=== PATIENT | male | born 1945 | race Caucasian/White ===

== ENCOUNTER 2016-03-03 10:08 | Inpatient (IN) | payer OTHER ==
--- NOTE | 2016-02-06 09:58 | PAT Medication Instructions ---
Service Date Feb 06, 2016. Current Home Medication List Brimonidine Tartrate (Alphagan P Oph), 1 DROPS OP BID Dorzolamide Hcl (Trusopt Oph), 1 DROPS OP BID Finasteride (Proscar), 5 MG PO QPM Ibuprofen Tab (Advil), 400 MG PO BID Latanoprost (Xalatan 0.005% Oph Missy), 1 DROPS OP HS Simvastatin (Zocor), 40 MG PO QPM Tamsulosin Hcl (Flomax), 0.4 MG PO QPM Medication Instructions For Your Scheduled Surgery - Check with surgeon for instructions: Ibuprofen Tab (Advil), 400 MG PO BID - Take the following medications the morning of surgery with a sip of water: Dorzolamide Hcl (Trusopt Oph), 1 DROPS OP BID Brimonidine Tartrate (Alphagan P Oph), 1 DROPS OP BID - Take the following medications as scheduled the night before surgery: Tamsulosin Hcl (Flomax), 0.4 MG PO QPM Latanoprost (Xalatan 0.005% Oph Missy), 1 DROPS OP HS Simvastatin (Zocor), 40 MG PO QPM Finasteride (Proscar), 5 MG PO QPM Dorzolamide Hcl (Trusopt Oph), 1 DROPS OP BID Brimonidine Tartrate (Alphagan P Oph), 1 DROPS OP BID If you have any questions please call us at [phone] (Ashley Coker PA-C) or [phone] or [phone]
--- NOTE | 2016-02-06 10:48 | DIAGNOSTIC IMAGING REPORT ---
CHEST PREADMISSION(PA/LAT) CLINICAL HISTORY: Preoperative chest COMPARISON STUDY: No previous studies for comparison. FINDINGS: The heart is borderline enlarged. There is mild interstitial thickening with a basilar predominance. There is no lobar consolidation. There are no pleural effusions. There are old left-sided rib deformities.[ IMPRESSION: Mild interstitial thickening. No evidence of lobar consolidation. Electronically signed by: Dorian Rodriguez M.D. 02/06/2016 10:47 AM
[2016-02-06 10:49] LABS: BASO % 0.5 %; BASO ABS # 0.04 K/uL (0-0.2); COMPLETE YES; EOS % 4.5 %; HEMATOCRIT 42.8 % (42-52); IG% 0.4 %; MEAN CELL VOLUME 93.7 fL (80-100); MEAN CORPUSCULAR HEMOGLOBIN 32.2 pg (25-34); MEAN CORPUSCULAR HGB CONC 34.3 g/dl (32-36); MEAN PLATELET VOLUME 10.3 fL (7.4-10.4); MONO % 9.3 %; NEUT % 59.3 %; PLATELET COUNT 199 K/uL (130-400); RED BLOOD COUNT 4.57 M/uL (4.7-6.1); WHITE BLOOD COUNT 7.32 K/uL (4.8-10.8)
[2016-02-06 11:07] LABS: PARTIAL THROMBOPLASTIN RATIO 1.1; PROTHROMBIN TIME (PATIENT) 10.7 SECONDS (9.0-12.0)
[2016-02-06 11:15] LABS: BUN/CREATININE RATIO 22.3 (10-20); CALCIUM 8.8 mg/dl (8.5-10.1); CREATININE 1.1 mg/dl (0.60-1.40); POTASSIUM 4.2 mmol/L (3.5-5.1)
[2016-02-06 12:16] LABS: ESTIMATED AVERAGE GLUCOSE 120 mg/dl; HA1C FLAG Normal (Normal)
--- NOTE | 2016-02-24 16:58 | HISTORY & PHYSICAL EXAMINATION ---
DATE OF ADMISSION: 03/03/2016 PROCEDURE: Left knee replacement. HISTORY OF PRESENT ILLNESS: The patient is a pleasant 70-year-old male who presents for preoperative evaluation prior to left knee replacement. He states he has been having pain in this knee for several years now, which has gradually worsened, it has now gotten to the point that it is affecting his daily activities including walking, standing, going up and down steps. He has tried oral anti-inflammatories in the past as well as previous viscosupplementation and cortisone injection with little to no relief. After discussing further care, would like to proceed with a left knee replacement. PAST MEDICAL HISTORY: 1. High cholesterol. 2. BPH. ALLERGIES: No known drug allergies. CURRENT MEDICATIONS: 1. Latanaprost 0.005% one drop each eye daily. 2. Simvastatin 40 mg daily. 3. Finasteride 5 mg daily. 4. Tamsulosin 0.4 mg once a day. PAST SURGICAL HISTORY: None listed. FAMILY HISTORY: Noncontributory. SOCIAL HISTORY: The patient denies a history of alcohol use, admits to smoking. REVIEW OF SYSTEMS: Otherwise negative. Please see HPI for pertinent positives. PHYSICAL EXAMINATION: GENERAL: Pleasant male in no acute distress, alert and oriented x3. VITAL SIGNS: He is 5 feet 7 inches, weighs 190 pounds. HEENT: Normocephalic, atraumatic. CARDIAC: Regular rate and rhythm. No murmurs or gallops appreciated. Resting pulse 80 beats per minute. LUNGS: Clear to auscultation without rales or wheeze bilaterally. ABDOMEN: Soft, nontender. Bowel sounds present. EXTREMITIES: Left lower extremity is neurovascularly intact. Calves are soft and nontender. DP pulse +2 doses good quad tone. Straight leg raise without lag. No erythema or warmth. Has mild effusion. Overall has varus alignment. Has positive crepitation with motion, range of motion is 0/5/115. IMAGING: Reviewed of the left knee shows findings consistent with end-stage DJD including joint space narrowing, subchondral sclerosis, osteophyte formation noted, has varus alignment. IMPRESSION: 1. Left knee degenerative joint disease. 2. High cholesterol. 3. Benign prostatic hypertrophy. PLAN: Further care discussed with patient. At this point in time, he has failed conservative measures and would like to proceed with the left knee replacement. We will place on aspirin 81 mg p.o. b.i.d. for a month postop. Otherwise, have no other questions or concerns.
[2016-03-03] VITALS (7 sets, daily range): BP systolic 100–124; BP diastolic 60–84; PULSE 56–82; TEMP 36.5–36.9; O2SAT 93–99; Ht 167.6 cm; Wt 88.4 kg
[~2016-03-03] VITALS: Ht 167.6 cm; Wt 88.4 kg
--- NOTE | 2016-03-03 09:26 | History & Physical Bridge Note ---
H&P Re-Evaluation Bridge Note: I have examined the patient, reviewed the History & Physical and in the interval since the performance of the History & Physical I have noted the following changes of clinical significance: No changes noted
[~2016-03-03 10:08] MED LIST: ACETAMINOPHEN 500 MG TAB PO SCH; ATROPINE SULFATE 0.1 MG/ML 5ML SYR IV PRN; BRIM0.1S OP; BUPIVACAINE 0.5 % 5 MG/1 ML PF 10ML VIAL ONE; CEFAZOLIN 2000 MG/60 ML D5W 60 ML IV SCH; CeleBREX 200 MG CAP PO SCH; DEXAMETHASONE 4 MG TAB PO SCH; DORZ2SOL17 OP; EpHEDrine SULFATE INJ 50 MG/ML AMP IV PRN; FAMOTIDINE 20 MG TAB PO SCH; FENTANYL CITRATE INJ 50 MCG/1 ML 2 ML VIAL IV PRN; FINA5TAB PO; GABAPENTIN 300 MG CAP PO SCH; IBUP-103 PO; LACTATED RINGER'S 1000ML IV SCH; LACTATED RINGER'S 500 ML IV SCH; LATA0.5S OP; METOCLOPRAMIDE HCL 10 MG TAB PO SCH; NURSING VERBAL MED ORDER ONE; ONDANSETRON INJ 2 MG/ML 2 ML VIAL IV PRN; ROPIVACAINE 5MG/ML 30 ML 150 MG, BUPIVACAINE/EPINEPHR 0.5% MPF 30 ML, KETOROLAC TROMETH... INFIL SCH; SIMV40TA2 PO; TAMS0.4C38 PO
[2016-03-03] MEDS ORDERED: FENTANYL CITRATE INJ 50 MCG/1 ML 2 ML VIAL ONE (11:11)
[2016-03-03] MEDS ORDERED: PROPOFOL IV EMULSION 10 MG/ML 20 ML VIAL IV ONE (11:11)
[2016-03-03] MEDS ORDERED: ROCURONIUM BROMIDE 10 MG/ML 5 ML VIAL ONE (11:11)
[2016-03-03] MEDS ORDERED: LIDOCAINE HCL 2% 2 ML VIAL (20MG/ML) ONE (11:11)
[2016-03-03] MEDS ORDERED: MIDAZOLAM HCL 1 MG/ML 2ML VIAL ONE (11:11)
[2016-03-03] MEDS ORDERED: ORTHO JOINT ANESTHETIC ONE (12:16)
[2016-03-03] MEDS: TRANEXAMIC ACID INJ 1,000 MG in SODIUM CHLORIDE 0.9% 100ML 100 ML IV SCH ×2 (12:25→16:36)
[2016-03-03] MEDS ORDERED: ONDANSETRON INJ 2 MG/ML 2 ML VIAL ONE (13:07)
[2016-03-03] MEDS ORDERED: EpHEDrine SULFATE 50MG/5ML SYR ONE (13:14)
[2016-03-03] MEDS ORDERED: POVIDONE-IODINE OP SOLN 30 ML BTL TOP ONE (13:28)
[2016-03-03] MEDS ORDERED: BACITRACIN 50000 UNIT VIAL IR ONE (13:28)
--- NOTE | 2016-03-03 13:49 | [facility] Post Operative Brief Note ---
Immediate Operative Summary Operative Date Mar 03, 2016. Pre-Operative Diagnosis Left knee degenerative joint disease Post-Operative Diagnosis Left knee degenerative joint disease Procedure(s) Performed Left Total Knee Arthroplasty Surgeon Dr. Ronald Griggs Lead Electrician Surgeon(s) Ollie Masterson Estimated Blood Loss 5mL Findings severe djd lt knee with varus deformity Specimens A: Left Knee Bone and Tissue Complication(s) None Disposition Recovery Room / PACU
--- NOTE | 2016-03-03 14:28 | OPERATIVE REPORT ---
DATE OF OPERATION: 03/03/2016 PREOPERATIVE DIAGNOSIS: Severe end-stage tricompartmental degenerative joint disease with varus alignment, left knee. POSTOPERATIVE DIAGNOSIS: Same. PROCEDURE: Left total knee arthroplasty utilizing Calvert \T\ Nephew Journey II patient matched knee, size 7 femur, 6 tibia, 13 poly, 35 oval patella. SURGEON: Dr. Griggs. SPORTS CARTOONIST: MIQUEL Dumas. ANESTHESIA: Femoral nerve block, spinal. COMPLICATIONS: None. ESTIMATED BLOOD LOSS: 5 mL. TOURNIQUET TIME: 45 minutes. HISTORY OF PRESENT ILLNESS: The patient presents as a very pleasant 70-year-old white male who presents with complaints of severe end-stage DJD about his left knee. He has been nonresponsive to conservative therapy including physical therapy, anti-inflammatories, relative rest, activity modification, relative rest and presents for total knee arthroplasty. INDICATIONS: The patient, age 70, presents being seen and evaluated after failing attempts at conservative management including physical therapy, viscosupplementation, corticosteroid injections, relative rest and presents after failing conservative management for total knee arthroplasty. OPERATION AND FINDINGS: The patient was properly prepped and draped in supine position for total knee arthroplasty after identifying the appropriate surgical site. An anterior midline incision was made through the subcutaneous tissues down to the region of the extensor mechanism. A medial parapatellar incision was subsequently made. Meticulous hemostasis was obtained and performed at all times. The patella having been subluxed lateralward, medial and lateral meniscal remnants were excised. The patellar cut was then initially made and was sized to the appropriate size. After subluxing the tibia forward the appropriate meniscal fragments having been removed the distal femur was then cut first utilizing a Calvert and Nephew block. The distal femoral cuts and chamfer cuts were all made under direct visualization and the proximal tibial osteotomy cut was also made utilizing Calvert and Nephew blocks and checked with an extramedullary guide. The appropriate trial components on the femur and tibia were placed. Appropriate trial spacers were used to check flexion and extension gaps. With flexion and extension gaps being equal, the components were then subsequently after thorough irrigation and debridement lavage components were then subsequently cemented in the following order: femur, tibia and patella. Exparel was used for intraoperative anesthesia, the medial parapatellar incision was closed utilizing #1 Vicryl, subQ was closed with 2-0 Vicryl, skin was closed with skin clips. A sterile compression dressing was placed. The patient was taken to recovery room in stable condition. Due to the complex nature of the procedure, the entire surgery was performed with the operational assistance of Ollie Masterson PA-C. The planning assistant, under direct supervision, was involved in the actual performance of all aspects of the surgical procedure including hemostasis, tissue retraction and incision, instrument management, patient positioning, and wound closure. I attest to the content of the Intraoperative Record and any orders documented therein. Any exceptio ns are noted below.
[2016-03-03] MEDS ORDERED: BISACODYL 10 MG SUPP PR PRN (14:30)
[2016-03-03] MEDS ORDERED: ZOLPIDEM TARTRATE 5 MG TAB PO PRN (14:30)
[2016-03-03] MEDS ORDERED: ALUMINUM/MAGNESIUM/SIMETH (MAALOX MAX) 30 ML UDC PO PRN (14:30)
[2016-03-03] MEDS ORDERED: DiphenhydrAMINE HCL 50 MG/ML VIAL IV PRN (14:30)
[2016-03-03] MEDS ORDERED: MAGNESIUM HYDROXIDE SUSP 30 ML UDC PO PRN (14:30)
[2016-03-03] MEDS ORDERED: ONDANSETRON INJ 2 MG/ML 2 ML VIAL IV PRN (14:30)
[2016-03-03] MEDS ORDERED: MoRPHine SULFATE 2 MG/ML CARP IV PRN (14:30)
--- NOTE | 2016-03-03 14:57 | DIAGNOSTIC IMAGING REPORT ---
LEFT KNEE 2 VIEWS History: Left total knee arthroplasty. Degenerative arthritis. Postop. FINDINGS: The patient is status post a left total knee arthroplasty. The hardware is intact. No fracture or dislocation. Skin quoc and surgical drains are in place. IMPRESSION: Left total knee arthroplasty. No evidence for hardware complication. Electronically signed by: Pravin Hines M.D. 03/03/2016 2:55 PM Dictated Date/Time: 03/03/2016 2:55 PM
--- NOTE | 2016-03-03 15:19 | Anesthesiology Progress Note ---
Anesthesia Post Op Note Date & Time Mar 03, 2016 at 15:19 Vital Signs Pain Intensity: 0 Vital Signs Past 12 Hours Date Time Temp Pulse Resp B/P Pulse Ox O2 Delivery O2 Flow Rate FiO2 03/03/16 15:15 65 20 102/66 98 Nasal Cannula 2 03/03/16 15:05 36.4 63 13 116/57 98 Nasal Cannula 2 03/03/16 14:55 56 18 116/62 98 Nasal Cannula 2 03/03/16 14:45 56 15 118/63 98 Nasal Cannula 2 03/03/16 14:35 56 12 119/72 98 Mask 10 03/03/16 14:27 36.5 65 16 130/67 99 Mask 10 03/03/16 10:31 36.9 67 20 122/84 94 Room Air Notes Mental Status: alert / awake / arousable, participated in evaluation Pt Amnestic to Procedure: Yes Nausea / Vomiting: adequately controlled Pain: adequately controlled Airway Patency, RR, SpO2: stable & adequate BP & HR: stable & adequate Hydration State: stable & adequate Anesthetic Complications: no major complications apparent
[2016-03-03] MEDS: FERROUS GLUCONATE 324 MG TAB PO SCH (16:53)
[2016-03-03] MEDS: D5W AND 1/2NSS + 20MEQ KCL 1,000 ML IV SCH (16:53)
[2016-03-03] MEDS: CEFAZOLIN IV 2,000 MG in DEXTROSE 5% 50ML 50 ML IV SCH (19:42)
[2016-03-03] MEDS: ACETAMINOPHEN 500 MG TAB PO SCH (19:43)
[2016-03-03] MEDS: SIMVASTATIN 40 MG TAB PO SCH (20:53)
[2016-03-03] MEDS: DORZOLAMIDE HCL 2% OPH SOLN 10 ML BTL OP SCH (20:53)
[2016-03-03] MEDS: OXYCODONE HCL 10 MG TABCR (OXYCONTIN) PO SCH (20:54)
[2016-03-03] MEDS: TAMSULOSIN HCL 0.4 MG CAP PO SCH (20:54)
[2016-03-03] MEDS: LATANOPROST 0.005% OP SOLN 2.5 ML BTL OP SCH (20:54)
[2016-03-03] MEDS: FINASTERIDE 5 MG TAB PO SCH (20:54)
[2016-03-03] MEDS: SENNA 8.6 MG TAB PO SCH (20:54)
[2016-03-03] MEDS: ASPIRIN 81 MG ECTAB PO SCH (20:54)
[2016-03-03] MEDS: DOCUSATE SODIUM 100 MG CAP PO SCH (20:54)
[2016-03-04] MEDS: D5W AND 1/2NSS + 20MEQ KCL 1,000 ML IV SCH ×2 (01:33→12:15)
[2016-03-04] MEDS: CEFAZOLIN IV 2,000 MG in DEXTROSE 5% 50ML 50 ML IV SCH (03:28)
[2016-03-04] MEDS: ACETAMINOPHEN 500 MG TAB PO SCH ×3 (03:28→21:11)
[2016-03-04 04:00] VITALS: BP 115/71; PULSE 55; TEMP 36.7; O2SAT 95
[2016-03-04 05:57] LABS: HEMATOCRIT 40.3 % (42-52); MEAN CELL VOLUME 92.4 fL (80-100); MEAN CORPUSCULAR HEMOGLOBIN 30.7 pg (25-34); MEAN CORPUSCULAR HGB CONC 33.3 g/dl (32-36); MEAN PLATELET VOLUME 10.4 fL (7.4-10.4); PLATELET COUNT 195 K/uL (130-400); RED BLOOD COUNT 4.36 M/uL (4.7-6.1); WHITE BLOOD COUNT 15.91 K/uL (4.8-10.8)
[2016-03-04 06:22] LABS: BUN/CREATININE RATIO 20.8 (10-20); CALCIUM 8.7 mg/dl (8.5-10.1); CREATININE 1.3 mg/dl (0.60-1.40); POTASSIUM 4.3 mmol/L (3.5-5.1)
--- NOTE | 2016-03-04 07:55 | Orthopedic Progress Note ---
Orthopedic Progress Note Date of Service Mar 04, 2016. Subjective Post OP Day: 1 Reports: feeling well, pain controlled w PO medications, Denies: complaints Objective calves soft nontender, N/V intact, dressing C/D/I, A&O x3, toes mobile, hemovac drainage (150ml latest shift) Date Time Temp Pulse Resp B/P Pulse Ox O2 Delivery O2 Flow Rate FiO2 03/04/16 04:00 36.7 55 18 115/71 95 Room Air 03/03/16 23:35 36.5 59 18 100/60 94 Room Air 03/03/16 20:44 36.8 57 16 113/67 95 Room Air 03/03/16 19:30 Room Air 03/03/16 18:30 36.5 82 16 116/78 93 Nasal Cannula 2.0 03/03/16 17:30 36.6 66 16 111/73 95 Nasal Cannula 2.0 03/03/16 16:30 36.7 56 17 124/73 96 Nasal Cannula 2.0 03/03/16 15:30 69 14 98/56 96 Nasal Cannula 2 03/03/16 15:30 36.8 58 16 105/65 99 Nasal Cannula 2.0 03/03/16 15:30 98 Nasal Cannula 2.0 03/03/16 15:30 99 Nasal Cannula 2.0 03/03/16 15:15 65 20 102/66 98 Nasal Cannula 2 03/03/16 15:05 36.4 63 13 116/57 98 Nasal Cannula 2 03/03/16 14:55 56 18 116/62 98 Nasal Cannula 2 03/03/16 14:45 56 15 118/63 98 Nasal Cannula 2 03/03/16 14:35 56 12 119/72 98 Mask 10 03/03/16 14:27 36.5 65 16 130/67 99 Mask 10 03/03/16 10:31 36.9 67 20 122/84 94 Room Air Laboratory Results 24 Hours: Test 03/04/16 05:35 Hematocrit 40.3 % Hemoglobin 13.4 g/dL Assessment & Plan Assessment: POD 1 s/p Left TKA Plan: PT/OT Planning for OPPT Recheck HV ouptput after PT Inhouse Planning Pain Management: Oxycontin, Morphine, PO Tylenol, Oxy IR DVT Prophylaxis: TEDs, SCDs, ASA Discharge Planning Discharge Planning: home with oppt Pain Management: Oxycontin, PO Tylenol, Oxy IR DVT Prophylaxis: TEDs, ASA Therapy: Physical Therapy
[2016-03-04 08:00] VITALS: BP 108/72; PULSE 54; TEMP 36.6; O2SAT 97
[2016-03-04] MEDS: FERROUS GLUCONATE 324 MG TAB PO SCH ×3 (08:39→17:38)
[2016-03-04] MEDS: DOCUSATE SODIUM 100 MG CAP PO SCH ×2 (08:40→21:10)
[2016-03-04] MEDS: ASPIRIN 81 MG ECTAB PO SCH ×2 (08:40→21:10)
[2016-03-04] MEDS: PANTOprazole SOD 40 MG TAB PO SCH (08:40)
[2016-03-04] MEDS: OXYCODONE HCL 10 MG TABCR (OXYCONTIN) PO SCH ×2 (08:40→21:10)
[2016-03-04] MEDS: MULTIVITAMIN TAB PO SCH (08:40)
[2016-03-04] MEDS: DORZOLAMIDE HCL 2% OPH SOLN 10 ML BTL OP SCH ×2 (09:00→21:12)
[2016-03-04 12:05] VITALS: BP 102/64; PULSE 68; TEMP 36.7; O2SAT 96
--- NOTE | 2016-03-04 13:31 | Discharge Instructions ---
Discharge Instructions Admission Reason for Admission: Left Knee Osteoarthritis Discharge Discharge Diagnosis / Problem: left total knee replacement Discharge Goals Goal(s): Decrease discomfort, Improve function, Increase independence Activity Recommendations Activity Limitations: as noted below Weightbearing Status: Left weightbearing (as tolerated) . Instructions / Follow-Up Instructions / Follow-Up ACTIVITY RECOMMENDATIONS: SELF CARE INSTRUCTIONS AFTER TOTAL KNEE REPLACEMENT A. You may need to continue a physical therapy program after discharge from the hospital. There are several options available to you. Your doctor will assist you in selecting the best one for you. 1. An out-patient facility 2 to 3 times a week for therapy or home therapy. 2. Continue working on all exercises taught to you in the hospital. Your goals should be to increase bending of your knee to 90 degrees and beyond and to fully straighten your knee. B. You may progress at your own pace from walking with a walker or crutches to a cane; then to no assistive devices. C. Make walking a part of your daily routine. Be up as much as comfortable with rest periods throughout the day. Rest with leg elevation is very important. Use the ice wrap frequently for the first 3-4 weeks. D. There are no restrictions on activities. You may ride in a car, shop, participate in licensed mass real estate appraiser and all social activities. E. Wear the long elastic stockings (HUNTER hose) 20 hours a day for 2 weeks after surgery. They can be removed several times a day for laundering and for a bath. F. You may shower, no tub baths until cleared by your doctor. SPECIAL CARE INSTRUCTIONS: VERY IMPORTANT TO READ AND REVIEW A. There are a few signs you need to watch for after you are home. Call [facility] if you notice any of the followin. Increased severe knee pain. Some pain is expected especially when you exercise. 2. Increased swelling in your leg or knee; pain or swelling of the calf muscle in either lower leg. 3. Any fluid drainage from the incision. 4. Shortness of breath or chest pain. B. Please call [facility] [place] at if you have any concerns or questions about your operation or recovery. The doctor or his nurse will return your call promptly. C. You must take antibiotics before dental work, bladder, bowel or other surgery. Your doctor will provide you with a permanent care to carry describing this precaution. IMPORTANT: * REMEMBER TO TAKE ASPIRIN, 81 MG, TWICE DAILY FOR 4 WEEKS UNLESS OTHERWISE DIRECTED. THIS IS YOUR BLOOD THINNER. * HIGH RISK PATIENTS MAY BE PRESCRIBED A STRONGER BLOOD THINNER. THIS WILL BE PROVIDED AT DISCHARGE. * CALL IF INCREASED PAIN, REDNESS, DRAINAGE OR FEVER GREATER THAT 101. * WEAR HUNTER HOSE 20 HOURS PER DAY FOR 2 WEEKS. * YOU MAY HAVE A LARGE BAND-AID LIKE DRESSING (SILVERON). THIS WILL REMAIN ON YOUR INCISION FOR 7 DAYS, THEN CAN BE REMOVED. IF INCISION IS LEAKING THROUGH DRESSING, CALL THE OFFICE . FOLLOW UP VISIT: If appointment is not already scheduled: Please call [facility] to make a follow-up appointment for 2 weeks after your surgery at . Current Hospital Diet Patient's current hospital diet: Regular Diet Discharge Diet Recommended Diet: Regular Diet Procedures Procedures Performed: Left Total Knee Arthroplasty Pending Studies Studies pending at discharge: no Laboratory Results Hemoglobin A1c Test 02/06/16 10:05 Range/Units Estimated Average Glucose 120 mg/dl Hemoglobin A1c 5.8 H 4.5-5.6 % Medical Emergencies . Who to Call and When: Medical Emergencies: If at any time you feel your situation is an emergency, please call [phone] immediately. . Non-Emergent Contact Non-Emergency issues call your: Primary Care Provider, Surgeon . "Provider Documentation" section prepared by Sony Kelly. VTE Core Measure Inpt VTE Proph given/why not?: Other Anticoagulation (ASA 81mg po bid x 1month) , T.E.D. Stockings, SCD's
[2016-03-04 15:01] VITALS: BP 109/68; PULSE 64; TEMP 36.5; O2SAT 94
[2016-03-04] MEDS: LATANOPROST 0.005% OP SOLN 2.5 ML BTL OP SCH (21:12)
[2016-03-04] MEDS: TAMSULOSIN HCL 0.4 MG CAP PO SCH (21:41)
[2016-03-04] MEDS: SIMVASTATIN 40 MG TAB PO SCH (21:41)
[2016-03-04] MEDS: SENNA 8.6 MG TAB PO SCH (21:42)
[2016-03-04] MEDS: FINASTERIDE 5 MG TAB PO SCH (21:42)
[2016-03-05 00:10] VITALS: BP 113/72; PULSE 71; TEMP 36.5; O2SAT 95
[2016-03-05] MEDS: OXYCODONE HCL IR 5 MG TAB (IMMEDIATE RELEASE) PO PRN ×2 (00:52→09:18)
[2016-03-05] MEDS: ACETAMINOPHEN 500 MG TAB PO SCH (04:20)
[2016-03-05 07:40] VITALS: BP 113/68; PULSE 76; TEMP 36.9; O2SAT 92
--- NOTE | 2016-03-05 08:07 | Orthopedic Progress Note ---
Orthopedic Progress Note Date of Service Mar 05, 2016. Subjective Post OP Day: 2 Reports: feeling well, pain controlled w PO medications, Denies: SOB, calf pain , chest pain, complaints, light headedness, nausea / vomiting Objective calves soft nontender, N/V intact, capillary refill less than 2 sec., dressing C /D/I, A&O x3, toes mobile Date Time Temp Pulse Resp B/P Pulse Ox O2 Delivery O2 Flow Rate FiO2 03/05/16 07:40 36.9 76 17 113/68 92 Room Air 03/05/16 07:38 Room Air 03/05/16 00:45 Room Air 03/05/16 00:10 36.5 71 18 113/72 95 Room Air 03/04/16 19:25 Room Air 03/04/16 15:01 36.5 64 19 109/68 94 Room Air 03/04/16 12:05 36.7 68 14 102/64 96 Room Air Assessment & Plan Assessment: POD 2 s/p Left TKA Plan: PT/OT Planning for OPPT plan for d/c home after PT today, pain controlled, VSS. stable for d/c home Discharge Planning Discharge Planning: home with oppt Pain Management: Oxycontin, PO Tylenol, Oxy IR DVT Prophylaxis: TEDs, ASA Therapy: Physical Therapy
[2016-03-05] MEDS ORDERED: RXC5 PO (08:10)
[2016-03-05] MEDS ORDERED: ASPEC81 PO (08:10)
[2016-03-05] MEDS ORDERED: CLC100 PO (08:10)
[2016-03-05] MEDS ORDERED: OXYSR10 PO (08:10)
[2016-03-05] MEDS ORDERED: ACET-1138 PO (08:10)
[2016-03-05] MEDS ORDERED: ONDA8TAB6 PO (08:10)
[2016-03-05] MEDS: PANTOprazole SOD 40 MG TAB PO SCH (09:00)
[2016-03-05] MEDS: FERROUS GLUCONATE 324 MG TAB PO SCH (09:16)
[2016-03-05] MEDS: DORZOLAMIDE HCL 2% OPH SOLN 10 ML BTL OP SCH (09:17)
[2016-03-05] MEDS: MULTIVITAMIN TAB PO SCH (09:17)
[2016-03-05] MEDS: OXYCODONE HCL 10 MG TABCR (OXYCONTIN) PO SCH (09:18)
[2016-03-05 09:48] VITALS: BP 114/75
[2016-03-05] MEDS: ASPIRIN 81 MG ECTAB PO SCH (10:27)
[2016-03-05] MEDS: DOCUSATE SODIUM 100 MG CAP PO SCH (10:27)
[2016-03-05 10:32] VITALS: BP 113/68; PULSE 76; TEMP 36.9; O2SAT 92
--- NOTE | 2016-03-10 00:01 | DISCHARGE SUMMARY ---
DISCHARGE DIAGNOSIS: Degenerative joint disease, left knee. SECONDARY DIAGNOSES: Hypercholesterolemia, benign prostatic hypertrophy. CONSULTS: None. COMPLICATIONS: None. PROCEDURES: Left total knee arthroplasty performed by Dr. Griggs on 03/03/2016. BRIEF HISTORY: As dictated in the history and physical. HOSPITAL SUMMARY: The patient was admitted on the above-noted date and had the above-noted surgery performed which he tolerated well. On the first postoperative day, the patient was feeling well and the pain was controlled. Calves were soft and nontender, neurovascularly intact. Dressings clean, dry and intact. Toes were mobile. Vital signs were stable. He was afebrile. Hemoglobin was 13.4. He was started on physical therapy protocol and continued on DVT prophylaxis and pain management. Plans were for outpatient PT upon discharge. By his second postoperative day, he was feeling well and pain was controlled. Calves were soft and nontender, neurovascularly intact. Dressings were clean, dry and intact. Toes were mobile. He was otherwise remaining stable and progressing well with his physical therapy and it was felt he could be discharged to home on 03/05/2016. For further review, please see chart. LAB AND X-RAY DATA: As per chart. DISCHARGE INSTRUCTIONS: The patient was discharged to home on 03/05/2016 in stable condition. DIET: Regular. ACTIVITY: Weightbearing as tolerated to the left lower extremity. Follow TK instruction sheets and special care instructions as noted. Follow up with Dr. Griggs in 2 weeks. The patient to call for appointment if one has not been made for you. DISCHARGE MEDICATIONS: Acetaminophen 1000 mg p.o. q. 8 hours, aspirin 81 mg p.o. b.i.d., Colace 100 mg p.o. b.i.d., Zofran 8 mg p.o. q. 8 hours p.r.n., OxyContin 10 mg p.o. q. 12 hours, oxycodone 5-10 mg p.o. q. 4 hours p.r.n. Resume taking Alphagan drops 1 drop OP b.i.d., Trusopt ophthalmologic drops 1 drop OP b.i.d., finasteride 5 mg p.o. q.a.m., Xalatan 1 drop OP at bedtime, simvastatin 40 mg p.o. q.p.m., tamsulosin 0.4 mg p.o. q.p.m. Stop taking ibuprofen.
[2016-11-13] MEDS ORDERED: IBUP-103 PO (10:10)
== END 2016-03-05 11:06 | disposition home or self-care (01) | DRG 470 ==
LOC: ENRESERVTM → ENRESERVDT → C.ACU 10:08 → C.3E 14:29
PROVIDERS: ADMIT Orthopaedic Surgery; ATTEND Orthopaedic Surgery
PROC: 0SRD0J9 Replacement of Left Knee Joint with Synthetic Substitute, Cemented, Open Approach (ICD-10-PCS; principal; 2016-03-03 12:45)
DX: M17.12 Unilateral primary osteoarthritis, left knee (principal); M21.162 Varus deformity, not elsewhere classified, left knee; I45.10 Unspecified right bundle-branch block; E78.00 Pure hypercholesterolemia, unspecified; N40.0 Benign prostatic hyperplasia without lower urinary tract symptoms; H40.9 Unspecified glaucoma; F17.210 Nicotine dependence, cigarettes, uncomplicated; E66.9 Obesity, unspecified; Z68.30 Body mass index [BMI] 30.0-30.9, adult; Z79.1 Long term (current) use of non-steroidal anti-inflammatories (NSAID); Z79.899 Other long term (current) drug therapy

== ENCOUNTER 2016-12-16 09:32 | Inpatient (IN) | payer OTHER ==
[2016-11-13 10:13] VITALS: BMI 33.0
--- NOTE | 2016-11-13 10:43 | PAT Medication Instructions ---
Service Date Nov 13, 2016. Current Home Medication List Brimonidine Tartrate (Alphagan P Oph), 1 DROPS OP BID Dorzolamide Hcl (Trusopt Oph), 1 DROPS OP BID Finasteride (Proscar), 5 MG PO QPM Ibuprofen Tab (Advil), 400-600 MG PO BID PRN for RN Latanoprost (Xalatan 0.005% Oph Missy), 1 DROPS OP HS Simvastatin (Zocor), 40 MG PO QPM Tamsulosin Hcl (Flomax), 0.4 MG PO QPM Medication Instructions For Your Scheduled Surgery - Check with surgeon for instructions: Ibuprofen Tab (Advil), 400-600 MG PO BID PRN for RN - Take the following medications the morning of surgery with a sip of water: Brimonidine Tartrate (Alphagan P Oph), 1 DROPS OP BID Dorzolamide Hcl (Trusopt Oph), 1 DROPS OP BID - Take the following medications as scheduled the night before surgery: Tamsulosin Hcl (Flomax), 0.4 MG PO QPM Simvastatin (Zocor), 40 MG PO QPM Latanoprost (Xalatan 0.005% Oph Msisy), 1 DROPS OP HS Dorzolamide Hcl (Trusopt Oph), 1 DROPS OP BID Finasteride (Proscar), 5 MG PO QPM Brimonidine Tartrate (Alphagan P Oph), 1 DROPS OP BID If you have any questions please call us at [phone] or [phone] or [phone]
[2016-11-13 11:29] LABS: BASO % 0.5 %; BASO ABS # 0.03 K/uL (0-0.2); COMPLETE YES; EOS % 3.5 %; HEMATOCRIT 39.8 % (42-52); IG% 0.5 %; LYMPH % 22.3 %; LYMPH ABS # 1.34 K/uL (1.2-3.4); MEAN CELL VOLUME 91.3 fL (80-100); MEAN CORPUSCULAR HGB CONC 33.9 g/dl (32-36); MEAN PLATELET VOLUME 10.1 fL (7.4-10.4); MONO % 6.3 %; NEUT % 66.9 %; PLATELET COUNT 185 K/uL (130-400); RED BLOOD COUNT 4.36 M/uL (4.7-6.1); WHITE BLOOD COUNT 6.02 K/uL (4.8-10.8)
[2016-11-13 11:32] LABS: URINE APPEARANCE CLEAR (CLEAR); URINE BILIRUBIN NEG (NEG); URINE COLOR YELLOW; URINE NITRITE NEG (NEG); URINE SPECIFIC GRAVITY 1.012 (1.000-1.030); UROBILINOGEN NEG (NEG)
[2016-11-13 11:35] LABS: BUN/CREATININE RATIO 15.5 (10-20); CALCIUM 9.1 mg/dl (8.5-10.1); POTASSIUM 4.3 mmol/L (3.5-5.1)
[2016-11-13 11:35] LABS: MANUAL MICROSCOPIC REQUIRED? NO; REVIEW REQ? NO
[2016-11-13 11:43] LABS: PARTIAL THROMBOPLASTIN RATIO 1.1; PROTHROMBIN TIME (PATIENT) 10.7 SECONDS (9.0-12.0)
[2016-11-13 12:24] LABS: ESTIMATED AVERAGE GLUCOSE 128 mg/dl; HA1C FLAG Normal (Normal)
--- NOTE | 2016-12-15 16:36 | HISTORY & PHYSICAL EXAMINATION ---
DATE OF ADMISSION: 12/16/2016 HISTORY OF PRESENT ILLNESS: The patient presents as a 71-year-old white male with severe end-stage DJD of his right knee for right total knee arthroplasty. He is 5 feet 7 inches and 205 pounds. He has failed attempts at conservative management including physical therapy, anti-inflammatories, relative rest, activity modification, injections, bracing and presents for total knee arthroplasty, right knee. PAST MEDICAL HISTORY: Otherwise unremarkable. Denies history of hypertension. Denies history of diabetes or thyroid disease. FAMILY HISTORY: Unremarkable and noncontributory. SOCIAL HISTORY: The patient denies history of smoking, alcohol use or recreational drug use. PAST SURGICAL HISTORY: Significant for previous left total knee arthroplasty. ALLERGIES: None. MEDICATIONS: PSA pill. REVIEW OF SYSTEMS: Otherwise unremarkable. See history of present illness for pertinent positives. PHYSICAL EXAMINATION: GENERAL: A very pleasant 71-year-old white male, alert and oriented x3 in no acute distress with no other complaints. He presents with severe DJD of his right knee for right total knee arthroplasty. HEENT: Unremarkable, atraumatic, normocephalic. HEART: Regular at 72 beats per minute. No murmurs are noted. LUNGS: Clear without rales, rhonchi, or wheezes noted. ABDOMEN: Soft, nontender, nondistended. Bowel sounds are present in all 4 quadrants. RECTAL: Not performed. MUSCULOSKELETAL: Consistent with that of severe end-stage DJD and varus alignment right knee. PLAN: Right total knee arthroplasty, postoperative pain management, DVT prophylaxis.
[~2016-12-16] VITALS: Ht 170.2 cm; Wt 96.0 kg
[2016-12-16] VITALS (7 sets, daily range): BP systolic 98–129; BP diastolic 58–93; PULSE 57–89; TEMP 36.3–37.4; O2SAT 94–99; Ht 170.2 cm; Wt 96.0 kg
[2016-12-16] MEDS: TRANEXAMIC ACID INJ 1,000 MG in SYRINGE 0 ML IV SCH ×2 (06:30→12:11)
[~2016-12-16 09:32] MED LIST changes: -ATROPINE SULFATE 0.1 MG/ML 5ML SYR IV PRN; -CEFAZOLIN 2000 MG/60 ML D5W 60 ML IV SCH; +CEFAZOLIN 2000MG IV PUSH 10 ML IV SCH; -EpHEDrine SULFATE INJ 50 MG/ML AMP IV PRN; -FENTANYL CITRATE INJ 50 MCG/1 ML 2 ML VIAL IV PRN; +LACTATED RINGER'S 1000ML 1,000 ML IV SCH; +LACTATED RINGER'S 1000ML 500 ML IV ONE; -LACTATED RINGER'S 500 ML IV SCH; -NURSING VERBAL MED ORDER ONE; -ONDANSETRON INJ 2 MG/ML 2 ML VIAL IV PRN; +ROPIVACAINE 5MG/ML 30 ML 150 MG, BUPIVACAINE 0.5% MPF INJ 30 ML, EpINEphrine HCL INJ 0.... INFIL SCH; -ROPIVACAINE 5MG/ML 30 ML 150 MG, BUPIVACAINE/EPINEPHR 0.5% MPF 30 ML, KETOROLAC TROMETH... INFIL SCH; +TRANEXAMIC ACID INJ 1,000 MG in SODIUM CHLORIDE 0.9% 100ML 100 ML IV SCH
[2016-12-16] MEDS ORDERED: MIDAZOLAM HCL 1 MG/ML 2ML VIAL ONE ×2 (12:01)
[2016-12-16] MEDS ORDERED: ORTHO JOINT ANESTHETIC ONE (12:04)
[2016-12-16] MEDS ORDERED: POVIDONE-IODINE OP SOLN 30 ML BTL ONE (12:04)
[2016-12-16] MEDS ORDERED: BACITRACIN 50000 UNIT VIAL ONE (12:05)
--- NOTE | 2016-12-16 13:34 | [facility] Operative Report ---
Operative Report Operative Date Dec 16, 2016. Pre-Operative Diagnosis Severe End Stage Degenerative Joint Disease Right Knee Post-Operative Diagnosis Severe End Stage Degenerative Joint Disease Right Knee Procedure(s) Performed Right Total Knee Arthroplasty Cemented Calvert neph journey to patient-matched total knee arthroplasty size 7 femur 6 tibia 13 Mari [address] Ronald Griggs [employer] Associate Surgeon(s) Sony Kelly PA-C Estimated Blood Loss 5CC Findings Patient presents with severe end-stage tricompartmental degenerative joint disease varus alignment [id number] changes medial compartment medial subchondral sclerosis osteophytes and subchondral cystic changes Specimens As Per Surgeon A. Right Knee Bone and Tissue Complication(s) None Disposition Surgical ICU Indications Patient presents with severe end-stage varus DJD) Nourse wants to conservative therapy patient Siltex conservative management with physical therapy anti- inflammatories relative rest activity modification. Description of Procedure After proper prepping and draping of the Right lower extremity anterior midline incision was made over the region of the extensor extensor mechanism after meticulous hemostasis was obtained and maintained in subcutaneous tissues a medial parapatellar incision was made The patella was subluxed lateralward the medial lateral gutter were cleaned from any hypertrophic synovitis and scar tissue of the distal femoral block was placed and the distal femoral osteotomy cut was made subsequently the chamfers anterior and posterior osteotomy cuts were made utilizing the 4-in-1 block the tibia was subsequently subluxed anteriorward medial and ateral meniscal remnants were excised in their entirety remnants of the anterior and posterior cruciate ligaments were excised in their entirety excellent exposure of the proximal tibia was obtained the tibial osteotomy guide was placed on the proximal tibial osteotomy cut was made once again the knee was irrigated with copious amounts of sterile saline solution the patella was subsequently everted lateralward thickened scar tissue around the patella was removed the patella was subsequently cut utilizing a freehand technique and was drilled prepared for final preparation and placement of patella socially flexion-extension gaps were checked and the equal and symmetric trials were placed to the appropriate femoral and tibial trials with poly-spacer being placed for equal flexion and extension gaps and full range of motion including extension to 0 and flexion to 140 the trial components after having been taken to recovery range of motion was subsequently removed meticulous hemostasis was obtained and maintained subsequently a knee block injection of joint cocktail including ropivacaine 0.5% 150 mg. Bupivacaine 0.5 % epinephrine 1-200,030 mL's toradol 30 mg dexamethasone 4 mg ketamine 10 mg clonidine 100 micrograms normal saline solution 30 mg was infiltrated into the soft tissues of the posterior knee medial lateral gutters and periosteal synovium special attention was paid to protect neurovascular structures at all times subsequently trial components having been removed the knee was irrigated with sterile saline solution. debris was removed the proximal tibia was subsequently prepared and was made ready for the placement of the tibial component tibial component was also cemented and tamped into position the femoral component was subsequently placed and cemented in the position the patellar component was subsequently cemented in position because hemostasis once again obtained and maintained wound having been thoroughly irrigated with debridement and debridement lavage was performed as well as a medial parapatellar incision closed with #1 Vicryl in interrupted fashion subcutaneous was closed with #2 Vicryl skin was closed with skin clips. PA-C was necessary for prepping and drapping as well as wound closure of deep fascia Sub cutaneous tissue and skin and was necessary for the case. A sterile compressive dressing was placed patient was taken to recovery in stable condition of report dictated by Anson I attest to the content of the Intraoperative Record and any orders documented therein. Any exceptions are noted below. I attest to the content of the Intraoperative Record and any orders documented therein. Any exceptions are noted below.
[2016-12-16] MEDS ORDERED: PROPOFOL IV EMULSION 10 MG/ML 20 ML VIAL IV ONE (13:49)
[2016-12-16] MEDS ORDERED: LIDOCAINE HCL 2% 2 ML VIAL (20MG/ML) ONE (13:49)
[2016-12-16] MEDS ORDERED: ONDANSETRON INJ 2 MG/ML 2 ML VIAL IV PRN (14:15)
[2016-12-16] MEDS ORDERED: KETOROLAC TROMETHAMINE 15 MG/ML VIAL IV. PRN (14:15)
[2016-12-16] MEDS ORDERED: BISACODYL 10 MG SUPP PR PRN (14:15)
[2016-12-16] MEDS ORDERED: ZOLPIDEM TARTRATE 5 MG TAB PO PRN (14:15)
[2016-12-16] MEDS ORDERED: ALUMINUM/MAGNESIUM/SIMETH (MAALOX MAX) 30 ML UDC PO PRN (14:15)
[2016-12-16] MEDS ORDERED: SOD PHOSPHATE/SOD BIPHOSPHATE ENEMA 132 ML BTL PR PRN (14:15)
[2016-12-16] MEDS ORDERED: TRAMADOL HCL 50 MG TAB PO PRN (14:15)
[2016-12-16] MEDS ORDERED: OXYCODONE HCL IR 5 MG TAB (IMMEDIATE RELEASE) PO PRN (14:15)
[2016-12-16] MEDS ORDERED: MAGNESIUM HYDROXIDE SUSP 30 ML UDC PO PRN (14:15)
[2016-12-16] MEDS ORDERED: MoRPHine SULFATE 2 MG/ML CARP IV PRN (14:15)
--- NOTE | 2016-12-16 14:41 | DIAGNOSTIC IMAGING REPORT ---
R KNEE 1 OR 2 VIEWS ROUTINE CLINICAL HISTORY: Postoperative evaluation. COMPARISON: None FINDINGS: Alignment of the total right knee arthroplasty is anatomic. There is no fracture or unexpected radiopaque foreign body. Surgical drains are in place. IMPRESSION: Expected findings following total right knee arthroplasty. Electronically signed by: Kaiser Barkley M.D. 12/16/2016 2:40 PM Dictated Date/Time: 12/16/2016 2:39 PM
--- NOTE | 2016-12-16 15:39 | Anesthesiology Progress Note ---
Anesthesia Post Op Note Date & Time Dec 16, 2016 at 15:38 Vital Signs Pain Intensity: 0 Vital Signs Past 12 Hours Date Time Temp Pulse Resp B/P (MAP) Pulse Ox O2 Delivery O2 Flow Rate FiO2 12/16/16 15:22 59 12 93 12/16/16 15:22 56 12 12/16/16 15:21 95/59 12/16/16 15:17 59 12 93 12/16/16 15:17 59 12 12/16/16 15:16 97/63 12/16/16 15:12 61 13 12/16/16 15:12 60 13 95 12/16/16 15:11 112/64 12/16/16 15:07 52 14 12/16/16 15:07 53 14 98 12/16/16 15:06 106/70 12/16/16 15:02 55 12 97 12/16/16 15:02 56 12 12/16/16 15:01 107/68 12/16/16 14:57 57 15 95 12/16/16 14:57 57 15 12/16/16 14:56 113/74 12/16/16 14:52 58 16 98 12/16/16 14:52 59 16 12/16/16 14:51 110/76 12/16/16 14:47 61 12 95 12/16/16 14:47 61 12 12/16/16 14:46 100/65 12/16/16 14:42 46 11 98 12/16/16 14:42 50 11 12/16/16 14:41 125/73 12/16/16 14:37 52 13 12/16/16 14:37 57 13 107/70 99 12/16/16 14:34 36.5 50 15 107/70 (79) 100 Nasal Cannula 2 12/16/16 14:32 68 19 134/70 99 12/16/16 14:32 65 19 12/16/16 14:27 52 11 99 12/16/16 14:27 54 11 12/16/16 14:26 112/70 12/16/16 14:25 48 15 100 12/16/16 14:25 50 15 12/16/16 14:22 118/63 12/16/16 14:20 56 13 100 12/16/16 14:20 60 13 12/16/16 14:16 132/69 12/16/16 14:15 64 23 99 12/16/16 14:15 65 23 12/16/16 14:11 123/72 12/16/16 14:10 73 11 12/16/16 14:10 74 11 99 12/16/16 14:10 55 16 123/72 100 Oxymask 10 12/16/16 10:15 36.3 57 18 123/93 99 Room Air Notes Mental Status: alert / awake / arousable, participated in evaluation Pt Amnestic to Procedure: Yes Nausea / Vomiting: adequately controlled Pain: adequately controlled Airway Patency, RR, SpO2: stable & adequate BP & HR: stable & adequate Hydration State: stable & adequate Neuraxial Anesthesia: was administered, sensory block is resolving Anesthetic Complications: no major complications apparent
[2016-12-16] MEDS ORDERED: MoRPHine SULFATE 10 MG/ML CARP/VIAL IV PRN (18:00)
[2016-12-16] MEDS ORDERED: MoRPHine SULFATE 4 MG/ML 1 ML CARP\\VIAL IV PRN (18:00)
[2016-12-16] MEDS: ACETAMINOPHEN 500 MG TAB PO SCH (18:48)
[2016-12-16] MEDS ORDERED: PNEUMOCOCCAL ADMINISTRATION CHARGE ONE (20:00)
[2016-12-16] MEDS ORDERED: PNEUMOCOCCAL POLYSACCHARIDES 25 MCG/0.5 ML VIAL/SYR IM. ONE (20:00)
[2016-12-16] MEDS: D5W AND 1/2NSS + 20MEQ KCL 1,000 ML IV SCH (20:08)
[2016-12-16] MEDS: CEFAZOLIN IV 2,000 MG in SYRINGE 0 ML IV SCH (20:08)
[2016-12-16] MEDS ORDERED: BRIMONIDINE TARTRATE OP SCH (21:00)
[2016-12-16] MEDS ORDERED: FINASTERIDE 5 MG TAB PO SCH (21:00)
[2016-12-16] MEDS ORDERED: SENNA 8.6 MG TAB PO SCH (21:00)
[2016-12-16] MEDS ORDERED: LATANOPROST 0.005% OP SOLN 2.5 ML BTL OP SCH (21:00)
[2016-12-16] MEDS ORDERED: TAMSULOSIN HCL 0.4 MG CAP PO SCH (21:00)
[2016-12-16] MEDS ORDERED: SIMVASTATIN 40 MG TAB PO SCH (21:00)
[2016-12-16] MEDS: DORZOLAMIDE HCL 2% OPH SOLN 10 ML BTL OP SCH (21:41)
[2016-12-16] MEDS: DOCUSATE SODIUM 100 MG CAP PO SCH (21:44)
[2016-12-16] MEDS: ASPIRIN 81 MG ECTAB PO SCH (21:45)
[2016-12-17] MEDS: D5W AND 1/2NSS + 20MEQ KCL 1,000 ML IV SCH ×2 (00:08→06:05)
[2016-12-17] MEDS: ACETAMINOPHEN 500 MG TAB PO SCH ×2 (01:33→09:18)
[2016-12-17 03:45] VITALS: BP 107/66; PULSE 63; TEMP 36.8; O2SAT 94
[2016-12-17] MEDS: CEFAZOLIN IV 2,000 MG in SYRINGE 0 ML IV SCH (03:57)
[2016-12-17 06:11] LABS: HEMATOCRIT 33.6 % (42-52); MEAN CELL VOLUME 91.6 fL (80-100); MEAN CORPUSCULAR HGB CONC 32.7 g/dl (32-36); PLATELET COUNT 172 K/uL (130-400); RED BLOOD COUNT 3.67 M/uL (4.7-6.1); WHITE BLOOD COUNT 13.98 K/uL (4.8-10.8)
[2016-12-17 06:39] LABS: BUN/CREATININE RATIO 23.1 (10-20); CALCIUM 8.4 mg/dl (8.5-10.1); CREATININE 1.45 mg/dl (0.60-1.40); POTASSIUM 4.2 mmol/L (3.5-5.1)
[2016-12-17 06:43] LABS: PROTHROMBIN TIME (PATIENT) 11.1 SECONDS (9.0-12.0)
[2016-12-17 07:30] VITALS: BP 121/70; PULSE 55; TEMP 36.5; O2SAT 94
[2016-12-17] MEDS: DORZOLAMIDE HCL 2% OPH SOLN 10 ML BTL OP SCH (08:11)
--- NOTE | 2016-12-17 08:15 | Orthopedic Progress Note ---
Orthopedic Progress Note Date of Service Dec 17, 2016. Subjective Post OP Day: 1 Reports: feeling well, Denies: chest pain, SOB, nausea / vomiting, light headedness, calf pain Objective calves soft nontender, N/V intact, capillary refill less than 2 sec., dressing C /D/I, A&O x3, toes mobile, hemovac drainage (220/175CC PER SHIFT) Date Time Temp Pulse Resp B/P (MAP) Pulse Ox O2 Delivery O2 Flow Rate FiO2 12/17/16 03:45 36.8 63 18 107/66 (80) 94 Room Air 12/17/16 00:05 Room Air 12/16/16 22:55 36.8 57 16 98/61 (73) 94 Room Air 12/16/16 20:40 36.4 89 16 129/82 (98) 94 Room Air 12/16/16 18:01 37.4 64 16 119/58 (78) 94 Nasal Cannula 2.0 12/16/16 17:21 37.3 62 16 119/70 (86) 96 Nasal Cannula 2.0 12/16/16 16:25 36.9 62 16 110/69 (83) 97 Nasal Cannula 2.0 12/16/16 15:50 95 Nasal Cannula 2.0 12/16/16 15:50 Nasal Cannula 2.0 12/16/16 15:50 36.5 61 18 118/76 (90) 95 Nasal Cannula 2.0 12/16/16 15:22 59 12 93 12/16/16 15:22 56 12 12/16/16 15:21 95/59 12/16/16 15:17 59 12 93 12/16/16 15:17 59 12 12/16/16 15:16 97/63 12/16/16 15:12 61 13 12/16/16 15:12 60 13 95 12/16/16 15:11 112/64 12/16/16 15:07 52 14 12/16/16 15:07 53 14 98 12/16/16 15:06 106/70 12/16/16 15:02 55 12 97 12/16/16 15:02 56 12 12/16/16 15:01 107/68 12/16/16 14:57 57 15 95 12/16/16 14:57 57 15 12/16/16 14:56 113/74 12/16/16 14:52 58 16 98 12/16/16 14:52 59 16 12/16/16 14:51 110/76 12/16/16 14:47 61 12 95 12/16/16 14:47 61 12 12/16/16 14:46 100/65 12/16/16 14:42 46 11 98 12/16/16 14:42 50 11 12/16/16 14:41 125/73 12/16/16 14:37 52 13 12/16/16 14:37 57 13 107/70 99 12/16/16 14:34 36.5 50 15 107/70 (79) 100 Nasal Cannula 2 12/16/16 14:32 68 19 134/70 99 12/16/16 14:32 65 19 12/16/16 14:27 52 11 99 12/16/16 14:27 54 11 12/16/16 14:26 112/70 12/16/16 14:25 48 15 100 12/16/16 14:25 50 15 12/16/16 14:22 118/63 12/16/16 14:20 56 13 100 12/16/16 14:20 60 13 12/16/16 14:16 132/69 12/16/16 14:15 64 23 99 12/16/16 14:15 65 23 12/16/16 14:11 123/72 12/16/16 14:10 73 11 12/16/16 14:10 74 11 99 12/16/16 14:10 55 16 123/72 100 Oxymask 10 12/16/16 10:15 36.3 57 18 123/93 99 Room Air Laboratory Results 24 Hours: Test 12/17/16 05:43 Hematocrit 33.6 % Hemoglobin 11.0 g/dL Prothromb Time International Ratio 1.0 Prothrombin Time 11.1 SECONDS Assessment & Plan Assessment: POD#1 SP RIGHT TKA Plan: PAIN MANAGEMENT- CARISSA, TYLENOL DVT PROPH- ASA BID DC PLANNING- HOME WITH OUTPATIENT PT, LIKELY TOMORROW DUE TO DRAIN OUTPUT.
[2016-12-17] MEDS: DOCUSATE SODIUM 100 MG CAP PO SCH (08:50)
[2016-12-17] MEDS ORDERED: PANTOprazole SOD 40 MG TAB PO SCH (09:00)
[2016-12-17] MEDS ORDERED: BRIMONIDINE TAR OP SCH (09:00)
[2016-12-17] MEDS: ASPIRIN 81 MG ECTAB PO SCH (09:17)
[2016-12-17 12:10] VITALS: BP 130/84; PULSE 53; TEMP 36.4; O2SAT 96
[2016-12-17 15:16] VITALS: BP 136/72; PULSE 60; TEMP 36.5; O2SAT 96
[2016-12-17 15:18] VITALS: BP 136/72; PULSE 60; TEMP 36.5; O2SAT 96
[2016-12-17] MEDS ORDERED: CLB200 PO (16:54)
[2016-12-17] MEDS ORDERED: SNK PO (16:54)
[2016-12-17] MEDS ORDERED: RXC5 PO (16:54)
[2016-12-17] MEDS ORDERED: ASPEC81 PO (16:54)
[2016-12-17] MEDS ORDERED: ACET-24 PO (16:54)
--- NOTE | 2016-12-17 16:57 | Discharge Instructions ---
Discharge Instructions Date of Service Dec 17, 2016. Admission Reason for Admission: Right Knee Osteoarthritis Discharge Discharge Diagnosis / Problem: Right Knee Djd Discharge Goals Goal(s): Decrease discomfort, Improve function Activity Recommendations Activity Limitations: per Instructions/Follow-up section Weightbearing Status: Right weightbearing (as tolerated) . Instructions / Follow-Up Instructions / Follow-Up ACTIVITY RECOMMENDATIONS: SELF CARE INSTRUCTIONS AFTER TOTAL KNEE REPLACEMENT A. You may need to continue a physical therapy program after discharge from the hospital. There are several options available to you. Your doctor will assist you in selecting the best one for you. 1. An out-patient facility 2 to 3 times a week for therapy or home therapy. 2. Continue working on all exercises taught to you in the hospital. Your goals should be to increase bending of your knee to 90 degrees and beyond and to fully straighten your knee. B. You may progress at your own pace from walking with a walker or crutches to a cane; then to no assistive devices. C. Make walking a part of your daily routine. Be up as much as comfortable with rest periods throughout the day. Rest with leg elevation is very important. Use the ice wrap frequently for the first 3-4 weeks. D. There are no restrictions on activities. You may ride in a car, shop, participate in antique furniture restorer and all social activities. E. Wear the long elastic stockings (HUNTER hose) 20 hours a day for 2 weeks after surgery. They can be removed several times a day for laundering and for a bath. F. You may shower, no tub baths until cleared by your doctor. SPECIAL CARE INSTRUCTIONS: VERY IMPORTANT TO READ AND REVIEW A. There are a few signs you need to watch for after you are home. Call [facility] if you notice any of the followin. Increased severe knee pain. Some pain is expected especially when you exercise. 2. Increased swelling in your leg or knee; pain or swelling of the calf muscle in either lower leg. 3. Any fluid drainage from the incision. 4. Shortness of breath or chest pain. B. Please call [facility] at if you have any concerns or questions about your operation or recovery. The doctor or his nurse will return your call promptly. C. You must take antibiotics before dental work, bladder, bowel or other surgery. Your doctor will provide you with a permanent care to carry describing this precaution. IMPORTANT: * REMEMBER TO TAKE ASPIRIN, 81 MG, TWICE DAILY FOR 4 WEEKS UNLESS OTHERWISE DIRECTED. THIS IS YOUR BLOOD THINNER. * HIGH RISK PATIENTS MAY BE PRESCRIBED A STRONGER BLOOD THINNER. THIS WILL BE PROVIDED AT DISCHARGE. * CALL IF INCREASED PAIN, REDNESS, DRAINAGE OR FEVER GREATER THAT 101. * WEAR HUNTER HOSE 20 HOURS PER DAY FOR 2 WEEKS. * Silverlon- This is a large adhesive bandage that contains silver ions. This helps your incision heal by fighting off bacteria and protecting it from the outside environment. You are permitted to shower with this dressing. This will remain on your incision for 7 days and then should be removed. Some visible blood or drainage through the dressing window is normal. If there is significant drainage or leaking noted before the 7 days notify your doctor's office immediately. Once removed, keep incision clean and dry. If there is any drainage or redness noted, please call your surgeon. . FOLLOW UP VISIT: If appointment is not already scheduled: Please call [facility] to make a follow-up appointment for 2 weeks after your surgery at . Current Hospital Diet Patient's current hospital diet: Regular Diet Discharge Diet Recommended Diet: Regular Diet Procedures Procedures Performed: Right Total Knee Arthroplasty Cemented Calvert nephew journey to patient-matched total knee arthroplasty size 7 femur 6 tibia 13 Mari 32 oval patella Pending Studies Studies pending at discharge: no Laboratory Results Hemoglobin A1c Test 11/13/16 10:52 Range/Units Estimated Average Glucose 128 mg/dl Hemoglobin A1c 6.1 H 4.5-5.6 % Medical Emergencies . Who to Call and When: Medical Emergencies: If at any time you feel your situation is an emergency, please call 911 immediately. . Non-Emergent Contact Non-Emergency issues call your: Surgeon Call Non-Emergent contact if: temperature is above 101.5, your pain is not controlled, your pain is worsening, wound has increased drainage, wound has increased redness . "Provider Documentation" section prepared by Ollie Masterson. . VTE Core Measure Inpt VTE Proph given/why not?: Other Anticoagulation, T.E.D. Stockings, SCD's [place] Drug Monitoring Program Search Results: patient reviewed within database, no issues identified
--- NOTE | 2016-12-17 18:19 | Discharge Summary ---
Orthopedic Discharge Summary Admission Date/Reason Dec 16, 2016 at 10:15 Right Knee Osteoarthritis. Discharge Date/Disposition Dec 17, 2016 Home Diagnosis Principal Diagnosis: right knee DJD Procedure(s) Performed Right Total Knee Arthroplasty Cemented Calvert nephew journey to patient-matched total knee arthroplasty size 7 femur 6 tibia 13 Mari 32 oval patella Consultations NONE Medication Reconciliation New Medications: Acetaminophen (Sb Non-Aspirin Extra Stre) 500 Mg Tab 1000 MG PO Q8H for 21 Days, #126 TAB Aspirin (Aspirin EC Low Dose) 81 Mg Ectab 81 MG PO BID for 30 Days Celecoxib (Celebrex) 200 Mg Cap 200 MG PO BID, #60 CAP Oxycodone HCl (Oxycodone HCl) 5 Mg Tab 5-10 MG PO Q4H PRN for Pain, #60 TAB Senna (Senna Lax) 8.6 Mg Tab 17.2 MG PO HS, #30 TAB hold for loose stools Continued Medications: Brimonidine Tartrate (Alphagan P Oph) 0.1 % Missy 1 DROPS OP BID for 30 Days, #5 ML 3 Refills Dorzolamide Hcl (Trusopt Oph) 2 % Missy 1 DROPS OP BID, #10 ML 3 Refills Finasteride (Proscar) 5 Mg Tab 5 MG PO QPM, TAB Latanoprost (Xalatan 0.005% Oph Missy) 0.005 % Missy 1 DROPS OP HS, #2.5 ML 3 Refills Simvastatin (Zocor) 40 Mg Tab 40 MG PO QPM, TAB Tamsulosin Hcl (Flomax) 0.4 Mg Cap 0.4 MG PO QPM, CAP Discontinued Medications: Ibuprofen Tab (Advil) 200 Mg Tab 400-600 MG PO BID PRN for RN, TAB Admission Physical Exam As per Admitting History & Physical. Hospital Course Patient was a same day admission after undergoing a successful right TKA. He tolerated the procedure well. Post-operatively, his activity was progressed and well tolerated. Please refer to daily progress notes and PT notes for complete details. After exam on 12/17/16, patient felt to be stable for discharge home with HHPT. Patient will f/u in the office in 2 weeks for further evaluation including x-rays and incision check, sooner if having any issues or concerns. Below are pertinent labs/studies during their hospital stay: Test 12/17/16 05:43 Hematocrit 33.6 % Hemoglobin 11.0 g/dL Prothromb Time International Ratio 1.0 Prothrombin Time 11.1 SECONDS Last Vital Signs Documentation Date Time Temp Pulse Resp B/P (MAP) Pulse Ox O2 Delivery O2 Flow Rate FiO2 12/17/16 15:18 36.5 60 17 96 Room Air 12/17/16 15:16 136/72 (93) 12/16/16 18:01 2.0 Discharge Instructions Please refer to the electronic Patient Visit Report (Discharge Instructions) for additional information.
[2016-12-17] MEDS ORDERED: CeleBREX 200 MG CAP PO SCH (21:00)
== END 2016-12-17 17:55 | disposition home or self-care (01) | DRG 470 ==
LOC: C.ACU 09:32 → C.3E 10:15 → ENRESERV 15:18 → C.3E 12-17 03:44
PROVIDERS: ADMIT Orthopaedic Surgery; ATTEND Orthopaedic Surgery
PROC: 0SRC0J9 Replacement of Right Knee Joint with Synthetic Substitute, Cemented, Open Approach (ICD-10-PCS; principal; 2016-12-16 12:15)
DX: M17.11 Unilateral primary osteoarthritis, right knee (principal); Z96.652 Presence of left artificial knee joint